=== PATIENT | male | born 1960 | race Caucasian/White ===

== ENCOUNTER → 2022-04-07 08:08 | Outpatient (CLI) | payer BC, SELFPAY ==
--- NOTE | 2022-04-07 | DI.MRI.S_ITS ---
PROCEDURE: MR ELBOW LT W CON INDICATIONS: LATERAL EPICONDYLITIS LEFT ELBOW TECHNIQUE: Noncontrast coronal proton density fast spin echo and T2 fast spin echo with fat saturation, axial and sagittal T1 spin echo and T2 fast spin echo with fat saturation through the elbow. COMPARISON: None. FINDINGS: Image quality: Excellent. Lateral structures: The lateral ulnar collateral ligament and radial collateral ligament both appear thickened with intrasubstance T2 hyperintense signal near its distal insertion.. The overlying common extensor tendon also appears thickened with intrasubstance T2 hyperintense signal near its lateral epicondylar insertion with adjacent soft tissue edema. Medial structures: The ulnar collateral ligament appears intact. The overlying common flexor tendon appears normal. The ulnar nerve appears normal in size and signal within the cubital tunnel. Anterior structures: The biceps and brachialis tendons both appear intact as they insert onto the proximal radius and ulna, respectively. No bicipitoradial bursal fluid. The median and radial neurovascular bundles appear normal; no focal muscle atrophy to suggest nerve impingement. Posterior structures: The conjoint triceps tendon from the long and lateral heads appears intact. The medial head of the triceps tendon also appears normal, with direct muscle insertion onto the olecranon. No olecranon bursal fluid. Bone and cartilage: No bone marrow contusions or fractures. No osteochondral injuries. IMPRESSION: 1. Finding is consistent with lateral epicondylitis with tendinosis and low-grade intrasubstance partial-thickness tear involving common extensor tendon origin at lateral low epicondyle. Sprain/low-grade partial-thickness tear involving distal portion of lateral collateral ligaments is also seen. 2. Rest of the elbow tendons and ligaments are intact. 3. No marrow edema. No fracture or dislocation. No intra-articular loose bodies. Dictated by: Chan Selby M.D. on 04/07/2022 at 11:32 Approved by: Chan Selby M.D. on 04/07/2022 at 11:34
== END ==
PROVIDERS: PCP Family Medicine; Referring Provider Orthopaedic Surgery; Visit Provider Orthopaedic Surgery
DX: M77.12 Lateral epicondylitis, left elbow (principal); S53.432A Radial collateral ligament sprain of left elbow, initial encounter; S53.442A Ulnar collateral ligament sprain of left elbow, initial encounter
CPT/HCPCS: 73221

== ENCOUNTER → 2022-05-26 15:46 | Outpatient (CLI) | payer BC, SELFPAY ==
[2022-05-26 17:44] LABS: Add Manual Diff / Slide Review NO; Basophils Absolute Auto 0 /uL (0-100); Basophils Percent Auto 0.4 % (0-2); Eosinophils Absolute Auto 100 /uL (0-450); Eosinophils Percent Auto 0.8 % (2-4); Hematocrit 44.1 % (41-53); Lymphocytes Absolute Auto 4100 /uL (1100-4500); Lymphocytes Percent Auto 51.5 % (25-40); Mean Corpuscular HGB Conc 34.1 % (30-36); Mean Corpuscular Hemoglobin 30.3 PG (26-34); Mean Corpuscular Volume 88.7 fL (80-100); Monocytes Absolute Auto 500 /uL (0-900); Monocytes Percent Auto 6.1 % (3-14); Neutrophils Absolute Auto 3300 /uL (1500-7000); Neutrophils Percent Auto 41.2 % (50-75); Platelet Count 240 X10^3/uL (150-400); Red Blood Cell Count 4.97 X10^6/uL (4.5-5.9)
[2022-05-26 18:02] LABS: Alanine Aminotransferase 20 IU/L (<50); Albumin Globulin Ratio 1.4 (1.0-2.8); Alkaline Phosphatase 53 U/L (38-126); Aspartate Aminotransferase 27 IU/L (17-59); BUN Creatinine Ratio 18.2 (6-22); Bilirubin Total 0.5 mg/dL (0.2-1.3); Blood Urea Nitrogen 16 mg/dL (9-20); Calcium 8.7 mg/dL (8.4-10.2); Carbon Dioxide 31 mmol/L (22-32); Chloride 102 mmol/L (98-107); Estimated Glomerular Filt Rate > 60 mL/min (>60); Globulin 2.8 g/dL (1.7-4.1); Glucose 84 mg/dL (70-100); HEMOLYSIS < 15 (0-50); Potassium 4.1 mmol/L (3.4-5.1); Sodium 140 mmol/L (137-145); Total Protein 6.8 g/dL (6.3-8.2)
[2022-05-26 18:34] LABS: TSH w/ Reflex to FT4 1.71 uIU/mL (0.47-4.68)
[2022-05-26 18:52] LABS: Vitamin B12 362 pg/mL (239-931)
== END ==
PROVIDERS: PCP Family Medicine; Referring Provider Family Medicine; Visit Provider Family Medicine
DX: I10 Essential (primary) hypertension (principal); I49.9 Cardiac arrhythmia, unspecified
CPT/HCPCS: 36415; 80053; 82607; 84443; 85025

== ENCOUNTER 2022-10-30 07:18 | Day surgery (SDC) | payer BC, SELFPAY ==
[2022-10-30 07:44] VITALS: BP 148/81; PULSE 58; RESP 20; TEMP 35.6; O2SAT 99; BMI 25.3
[2022-10-30] MEDS: LACTATED RINGERS 1,000 ML 120 ML IV (08:05)
--- NOTE | 2022-10-30 08:35 | P.HP_ITS ---
History of Present Illness History of Present Illness Date Patient Seen: 10/30/22 Time Patient Seen: 08:35 Chief complaint: Colonoscopy Narrative: Efrem is a 62 year old man who had a colonoscopy 3 years ago with polyps removed in [place]. No family history of colon cancer. PFSH Social History household members: spouse Meds Home Medications and Allergies Home Medications Medication Instructions Recorded Confirmed Type sodium sul 1.479 gram-potas ch See Rx Instructions PO PER PKG DIR 10/09/22 Rx 0.188 gram-magnes sul 0.225 gram #24 tabs tablet (Sutab) losartan See Rx Instructions .Route .COMPLEX 10/30/22 10/30/22 History Allergies Allergy/AdvReac Type Severity Reaction Status Date / Time No Known Drug Allergies Allergy Verified 10/30/22 07:58 Exam Vital Signs (past 8 hours): - 10/30/22 07:44 Temperature 96.1 F L Pulse Rate 58 L Respiratory Rate 20 Blood Pressure 148/81 H Pulse Oximetry 99 Oxygen Delivery Method Room Air Oxygen Delivery Method Room Air Const General: No acute distress Assessment & Plan Assessment and plan (1) Personal history of colonic polyps: Status: Acute Plan We reviewed the risks and benefits of colonoscopy for colon cancer screening and he would like to proceed.
--- NOTE | 2022-10-30 09:42 | PM.OP.COLON ---
Operative Date/Time/Diagnoses Date of procedure: 10/30/22 Time of procedure: 09:42 Pre-op diagnosis: Colon cancer screening Post-op diagnosis: same Procedure & Clinicians Study performed: Colonoscopy Surgeon: Addison Conner Procedure Notes Procedure in detail: Surgeon: Addison Conner MD Anesthesia: Claudine Li [employer]AR PHOTOVOLTAIC INSTALLER Procedure: The patient was brought to the endoscopy suite, placed in left lateral decubitus position. The patient was connected to monitoring devices. A time-out was performed. Sedation was administered. Once the patient was adequately sedated, a digital rectal exam was performed and was normal. The scope was then inserted and advanced to the cecum where the appendiceal orifice was identified and photographed. The scope was then slowly withdrawn over greater than 6 minutes. The mucosa was thoroughly inspected. Rare, scattered diverticula were seen in the sigmoid colon. The scope was retroflexed in the rectum. Some mild internal hemorrhoids were noted. No other abnormalities were noted. The scope was straightened and removed. The patient was awakened and brought to recovery. Scope withdrawal time: 8 minute Sedation time: 15 minutes EBL: 0 Findings: Normal colon Post-procedure Recommendations: Colonoscopy in 10 years Disposition: PACU
[2022-10-30 09:45] VITALS: BP 109/65; PULSE 61; RESP 13; TEMP 36.6; O2SAT 97
[2022-10-30 09:51] VITALS: BP 112/76; PULSE 58; RESP 15; TEMP 36.6; O2SAT 98
[2022-10-30 09:55] VITALS: BP 109/77; PULSE 59; RESP 18; TEMP 36.6; O2SAT 99
[2022-10-30 10:00] VITALS: BP 110/75; PULSE 58; RESP 18; TEMP 36.6; O2SAT 99
[2022-10-30 10:10] VITALS: BP 115/76; PULSE 57; RESP 16; TEMP 36.6; O2SAT 99
== END 2022-10-30 10:13 | disposition home or self-care (01) ==
PROVIDERS: PCP Family Medicine; Referring Provider Surgery; Visit Provider Surgery
PROC: 0DJD8ZZ Inspection of Lower Intestinal Tract, Via Natural or Artificial Opening Endoscopic (ICD-10-PCS; CPT 45378; principal; 2022-10-30 08:45)
DX: Z12.11 Encounter for screening for malignant neoplasm of colon (principal); K57.30 Diverticulosis of large intestine without perforation or abscess without bleeding; K64.8 Other hemorrhoids
CPT/HCPCS: 45378; J2704

== ENCOUNTER → 2023-01-02 07:48 | Outpatient (CLI) | payer BC, SELFPAY ==
--- NOTE | 2023-01-02 | DI.NM.S_ITS ---
PROCEDURE: NM EXERCISE TREADMILL NON NUC COMPARISON: None INDICATIONS: Paroxysmal atrial fibrillation FINDINGS: Rest ECG sinus rhythm, frequent PVCs. Kulwant protocol 11:39, maximum heart rate 146 bpm (91% peak predicted), maximum blood pressure 188/80, 12.8 METS, DOROTEO -30%. Exercise ECG sinus tachycardia no ST segment changes, decreased frequency of PVCs, no arrhythmias. Recovery ECG sinus rhythm, frequent PVCs. The patient did not complain of exercise-induced chest discomfort. IMPRESSION: Low risk study. No evidence of exercise-induced ischemia or arrhythmia. Frequent resting PVCs. Normal hemodynamic response to exercise. Very good exercise capacity. Dictated by: Pat Brady D.O. on 01/02/2023 at 17:38 Approved by: Pat Brady D.O. on 01/02/2023 at 17:41
== END ==
PROVIDERS: PCP Family Medicine; Referring Provider Internal Medicine Cardiovascular Disease; Visit Provider Internal Medicine Cardiovascular Disease
DX: I48.0 Paroxysmal atrial fibrillation (principal)
CPT/HCPCS: 93017

== ENCOUNTER → 2023-04-24 11:53 | Outpatient (CLI) | payer BC, SELFPAY ==
--- NOTE | 2023-04-24 | DI.RAD.S_ITS ---
PROCEDURE: XR HAND LT MIN 3V INDICATIONS: INJURY OF LEFT RING FINGER TECHNIQUE: 3 views of the hand(s) acquired. COMPARISON: None. FINDINGS: Bones: No acute fractures or dislocations. Carpal bones are normally aligned. No suspicious bony lesions. Remote fracture of the volar plate the 3rd middle phalanx. Soft tissues: No suspicious soft tissue calcifications. IMPRESSION: No acute, displaced fracture. Dictated by: Roddy Davidson M.D. on 04/24/2023 at 15:19 Approved by: Roddy Davidson M.D. on 04/24/2023 at 15:20
== END ==
PROVIDERS: PCP Family Medicine; Referring Provider Family Medicine; Visit Provider Family Medicine
DX: S69.92XA Unspecified injury of left wrist, hand and finger(s), initial encounter (principal); X58.XXXA Exposure to other specified factors, initial encounter
CPT/HCPCS: 73130

== ENCOUNTER 2024-10-09 15:42 | Emergency (ER) | payer BC, SELFPAY ==
[2024-10-09 15:44] VITALS: BP 164/86; PULSE 60; RESP 15; TEMP 36.6; O2SAT 100; BMI 25.3
--- NOTE | 2024-10-09 16:00 | DI.RAD.S_ITS ---
PROCEDURE: XR HIP W PEL IF DONE RT 2V INDICATIONS: Rt. hip pain able to bare minimal wt. TECHNIQUE: AP pelvis with lateral view(s) of the right hip(s). COMPARISON: None. FINDINGS: Bones: No fractures or dislocations. Pelvic ring appears intact. No suspicious bony lesions. Bilateral hip arthroplasty hardware is seen, without findings of failure or loosening. Age-appropriate lower lumbar spine degenerative changes are noted. Soft tissues: The visualized bowel gas pattern is normal. No suspicious soft tissue calcifications. IMPRESSION: Unremarkable postoperative study, without a cause of the patient's presenting history identified. Negative for fracture or dislocation. Dictated by: Tip Hester M.D. on 10/09/2024 at 15:30 Approved by: Tip Hester M.D. on 10/09/2024 at 15:31
--- NOTE | 2024-10-09 16:56 | ED.EXTPRO ---
HPI - Extremity Problem General Chief complaint: Extremity Problem,Nontraumatic Stated complaint: rt hip pain, t-1 month, artificial hip, worse toda Time Seen by Provider: 10/09/24 16:51 Source: patient Mode of arrival: Ambulatory History of Present Illness HPI Narrative: Mr. Burr is a pleasant 64 year old male with a past medical history of AFib status post ablation, bilateral hip surgery with hardware, hypertension who presents to the emergency department for right hip pain intermittently x1 month. Patient states about a month ago his right hip started hurting him, he saw his surgeon who did not x-ray and said it was normal, his pain went away however few days ago the pain came back. States that he was on his knees, working in his garden and then when he woke up this morning he would severe pain of the right hip. Describes it on the anterior and lateral aspect of the hip, worse with walking and flexing the leg, pain is improved with externally rotating the hip. He took an [place] and a dose of his 's Celebrex without relief. Related Data Home Medications Medication Instructions Recorded Confirmed losartan See Rx Instructions .Route .COMPLEX 10/30/22 10/30/22 Previous Rx's Medication Instructions Recorded lidocaine 5 % topical patch 1 patch topical DAILY #30 ea 10/09/24 (Lidoderm) methocarbamol 500 mg tablet 500 mg PO BEDTIME #10 tabs 10/09/24 naproxen 500 mg tablet 500 mg PO BID PRN pain #20 tabs 10/09/24 Allergies Allergy/AdvReac Type Severity Reaction Status Date / Time No Known Drug Allergies Allergy Verified 10/30/22 07:58 Review of Systems Review of Systems ROS Unobtainable: All systems reviewed & are unremarkable except as noted in HPI and below Patient History Social History household members: spouse Smoking Status: Never smoker Smoking Status: Never smoker alcohol intake frequency: 0-2 drinks per day Exam Narrative Exam Narrative: GENERAL: 64 year old patient appears stated age. Well-developed patient, very tall, in no acute distress. HEAD: Atraumatic. Normocephalic. NECK: Trachea midline. Cervical ROM intact. CARDIOVASCULAR: Regular rate and rhythm. RESPIRATORY: ?Nonlabored respirations. ?Speaking in clear, full sentences. ? GASTROINTESTINAL: Abdomen soft, non-tender, nondistended. No palpable hernias. EXTREMITIES: Entire right hip exposed. No deformities or bruising or rashes. Patient has tenderness to palpation of the lateral aspect of the right hip overlying the region of the greater trochanter and also the anterior right hip region. His pain is relieved with external rotation of the hip and is exacerbated by internal flexion of the hip. He is able to ambulate but with limp. Strong DP and PT pulses bilaterally. BACK: Nontender NEURO: AOx3. ?Clear speech. Sensation intact to light touch throughout the lower extremities. SKIN: No rash or erythema of visible areas Initial Vital Signs Initial Vital Signs: Vital Signs Temperature 97.8 F 10/09/24 15:44 Pulse Rate 60 10/09/24 15:44 Respiratory Rate 15 10/09/24 15:44 Blood Pressure 164/86 H 10/09/24 15:44 Pulse Oximetry 100 10/09/24 15:44 Oxygen Delivery Method Room Air 10/09/24 15:44 Course Orders Ordered: ED Orders 10/09/24 16:00 XR hip w pel if done RT 2V Stat Discontinued Medications Hydrocodone Bitart/Acetaminophen (Hydrocodone/Acet 5/325 Tablet) 1 tab PO NOW ONE Stop: 10/09/24 17:28 Last Admin: 10/09/24 17:41 Dose: 1 tab Documented By: PATRICK Ketorolac Tromethamine (Ketorolac 30 Mg/Ml Vial) 30 mg IM NOW ONE Stop: 10/09/24 17:28 Last Admin: 10/09/24 17:42 Dose: 30 mg Documented By: PATRICK Lidocaine (Lidocaine 5% Patch) 1 each TOP NOW ONE Stop: 10/09/24 17:28 Last Admin: 10/09/24 17:42 Dose: 1 each Documented By: PATRICK Vital Signs Vital signs: Vital Signs - 8 hr 10/09/24 15:44 10/09/24 18:22 Temperature 97.8 F Pulse Rate 60 60 Respiratory Rate 15 18 Blood Pressure 164/86 H 141/87 H Pulse Oximetry 100 98 Oxygen Delivery Method Room Air Room Air MDM - Extremity (Nontraumatic) Medical Records Attestation: I reviewed the patient's medical records. Medical records narrative: 10/30/2022 personal history of colonic polyps Imaging Data Hip and Pelvis X-Ray: Radiologist's Impression: PROCEDURE: XR HIP W PEL IF DONE RT 2V INDICATIONS: Rt. hip pain able to bare minimal wt. TECHNIQUE: AP pelvis with lateral view(s) of the right hip(s). COMPARISON: None. FINDINGS: Bones: No fractures or dislocations. Pelvic ring appears intact. No suspicious bony lesions. Bilateral hip arthroplasty hardware is seen, without findings of failure or loosening. Age-appropriate lower lumbar spine degenerative changes are noted. Soft tissues: The visualized bowel gas pattern is normal. No suspicious soft tissue calcifications. IMPRESSION: Unremarkable postoperative study, without a cause of the patient's presenting history identified. Negative for fracture or dislocation. [facility] Narrative Medical decision making narrative: 64 year old male with a past medical history of AFib status post ablation, bilateral hip surgery with hardware, hypertension who presents to the emergency department for right hip pain intermittently x1 month. Differential diagnosis includes but is not limited to hip fracture, sprain, strain, hardware complication, radiculopathy, meralgia paresthetica, etc. On exam the patient is in no acute distress, nontoxic appearing, vital signs appropriate. Right lower extremity is neurovascularly intact. He has nontraumatic right hip pain with a history of right hip hardware, recently gardening on his knees moving around for prolonged period of time. Pain in the right hip is quite severe and not responsive to home pain medications. X-ray hip and pelvis obtained reveals unremarkable postoperative steady, without a cause of the patient's presenting history identified. Negative for fracture or dislocation. He was treated with a dose of hydrocodone-acetaminophen and Toradol in the emergency department, I prescribed naproxen and Lidoderm for home and recommended acetaminophen in addition to Robaxin if needed. Discussed risks of muscle relaxers. Recommended supportive care with rest, ice, heat, compression, follow up with his surgeon promptly for further evaluation. We discussed strict ED return precautions. Patient verbalized understanding of all information is agreeable with the plan. He is stable for discharge home. Discharge Plan Departure Patient Disposition: Home Clinical Impression: Strain of right hip Qualifiers: Encounter type: initial encounter Qualified Code(s): S76.011A - Strain of muscle, fascia and tendon of right hip, initial encounter Instructions: DI for Hip Pain Activity Restrictions/Additional Instructions: Dear Mr. Burr, Thank you for coming to the emergency department today. You were evaluated for right hip pain. X-ray of her hip reveals no bone or hardware problems. At this time I am concerned for a soft tissue or muscle injury. It is very important to follow up with your surgeon for further evaluation. I have prescribed you an anti-inflammatory pain medication in addition to topical numbing medication, and a muscle relaxer. Take full-strength acetaminophen/Tylenol (a 1000 mg) every 8 hours as well. Please be aware that muscle relaxers can make you drowsy but you can try taking this at night to help with any spasms. Avoid drinking alcohol, taking narcotics, operating heavy machinery or driving a car while taking muscle relaxers. Please use RICE therapy for your pain in addition to naproxen/acetaminophen. Rest the painful area. Ice the area of pain/swelling for at least 15 minutes, 4x a day. Compress the area of swelling using a brace, wrap, or splint if applied. Elevate the painful or swollen extremity by supporting it above the level of the heart with pillows when sitting or laying. Please follow up with your primary care doctor within the next 2-3 days for ER follow-up. (If you do not have a PCP you can call [phone]. ?to schedule an appointment with an [facility] Primary Care Provider) IF YOU DEVELOP ANY NEW OR WORSENING SYMPTOMS, RETURN TO THE ER! Please read the attached instructions, they highlight more specific treatments and interventions for you at home. Thank you for letting me participate in your care, Mary Birch PA-C Prescriptions: New naproxen 500 mg tablet 500 mg PO BID PRN (Reason: pain) Qty: 20 0RF lidocaine [Lidoderm] 5 % adhesive patch,medicated 1 patch topical DAILY Qty: 30 0RF Rx Instructions: leave on most painful area for up to 12 hrs methocarbamol 500 mg tablet 500 mg PO BEDTIME Qty: 10 0RF No Action losartan 100 mg tablet See Rx Instructions .ROUTE .COMPLEX Rx Instructions: 100 mg orally ;100 100 mL orally Referrals: Sai Tapia MD [Primary Care Provider] - Stand Alone Forms: Patient Portal/API/Survey
[2024-10-09] MEDS: HYDROCODONE/ACET 5/325 TABLET 1 TAB PO (17:41)
[2024-10-09] MEDS: KETOROLAC 30 MG/ML VIAL IM (17:42)
[2024-10-09] MEDS: LIDOCAINE 5% PATCH 1 EACH TOP (17:42)
[2024-10-09 18:22] VITALS: BP 141/87; PULSE 60; RESP 18; O2SAT 98
--- NOTE | 2024-10-14 01:11 | ED_ITS ---
HPI - Extremity Problem General Chief complaint: Extremity Problem,Nontraumatic Stated complaint: rt hip pain, t-1 month, artificial hip, worse toda Time Seen by Provider: 10/09/24 16:51 Source: patient Mode of arrival: Ambulatory History of Present Illness HPI Narrative: 64-year-old gentleman with a history of AFib, post ablation not currently anticoagulated, he has had bilateral hip replacements presents complaining of continued right hip pain. Was seen in the emergency department on October 10 with significant pain, x-rays were unremarkable, felt to be a hip strain. He followed up with his primary care physician was given muscle relaxers which is minimally helpful. He notes that there are days when the pain isn't quite as severe and then escalates. Tonight he has been having so much pain that he was unable to stand up, diaphoretic and vomiting secondary to the pain. He was given fentanyl ketamine and Zofran EN route by medics. Continues to have severe right hip pain worse in the groin worse with internal rotation, no knee pain, no obvious fevers, he does not have pain into the right lower quadrant of his abdomen or tenderness with manipulation of the pelvic ring. He does not have back pain. Related Data Home Medications Medication Instructions Recorded Confirmed losartan See Rx Instructions .Route .COMPLEX 10/30/22 10/30/22 Previous Rx's Medication Instructions Recorded lidocaine 5 % topical patch 1 patch topical DAILY #30 ea 10/09/24 (Lidoderm) methocarbamol 500 mg tablet 500 mg PO BEDTIME #10 tabs 10/09/24 naproxen 500 mg tablet 500 mg PO BID PRN pain #20 tabs 10/09/24 Allergies Allergy/AdvReac Type Severity Reaction Status Date / Time No Known Drug Allergies Allergy Verified 10/30/22 07:58 Review of Systems Review of Systems Narrative: Pertinent positive and negative findings as per HPI Patient History Medical History (Updated 10/14/24 @ 01:13 by Diamond Burgos MD) Hypertension History of atrial fibrillation Surgical History (Updated 10/14/24 @ 01:13 by Diamond Burgos MD) History of bilateral hip replacements Social History household members: spouse Smoking Status: Never smoker alcohol intake frequency: 0-2 drinks per day Exam Initial Vital Signs Initial Vital Signs: Vital Signs Temperature 97.8 F 10/09/24 15:44 Pulse Rate 60 10/09/24 15:44 Respiratory Rate 15 10/09/24 15:44 Blood Pressure 164/86 H 10/09/24 15:44 Pulse Oximetry 100 10/09/24 15:44 Oxygen Delivery Method Room Air 10/09/24 15:44 General: Alert, pale, diaphoretic secondary to pain. Respiratory: Able to speak in full sentences, no obvious respiratory distress Abdomen: Soft. No tenderness particularly no tenderness in the right lower quadrant or right flank Spine: No midline tenderness along the lower thoracic or lumbar spine. No tenderness with manipulation of the pelvic ring Neurologic: Grossly intact no obvious asymmetries or abnormalities Psych: appropriate insight and affect, cooperative Extremity: Right hip has tenderness above the anterior pubic ramus radiating into the right groin. Pain is relieved with external rotation of the hip exacerbated by internal rotation of the hip. Bad enough that he is unable to to stand Course Orders Ordered: ED Orders 10/14/24 01:09 CT pelvis w con Stat Blood Culture Stat Complete Blood Count AUTO DIFF Stat Comprehensive Metabolic Panel Stat 10/14/24 01:11 CRP [C-Reactive Protein Quant] Stat Erythrocyte Sedimentation Rate Stat Hydromorphone HCl (Hydromorphone 0.5 Mg Inj) 0.5 mg IV Q15MIN PRN PRN Reason: Pain, Discontinued Medications Hydrocodone Bitart/Acetaminophen (Hydrocodone/Acet 5/325 Tablet) 1 tab PO NOW ONE Stop: 10/09/24 17:28 Last Admin: 10/09/24 17:41 Dose: 1 tab Documented By: PATRICK Ketorolac Tromethamine (Ketorolac 30 Mg/Ml Vial) 30 mg IM NOW ONE Stop: 10/09/24 17:28 Last Admin: 10/09/24 17:42 Dose: 30 mg Documented By: PATRICK Lidocaine (Lidocaine 5% Patch) 1 each TOP NOW ONE Stop: 10/09/24 17:28 Last Admin: 10/09/24 17:42 Dose: 1 each Documented By: PATRICK Discharge Plan Departure Patient Disposition: Home Clinical Impression: Strain of right hip Qualifiers: Encounter type: initial encounter Qualified Code(s): S76.011A - Strain of muscle, fascia and tendon of right hip, initial encounter Instructions: DI for Hip Pain Activity Restrictions/Additional Instructions: Dear Mr. Burr, Thank you for coming to the emergency department today. You were evaluated for right hip pain. X-ray of her hip reveals no bone or hardware problems. At this time I am concerned for a soft tissue or muscle injury. It is very important to follow up with your surgeon for further evaluation. I have prescribed you an anti-inflammatory pain medication in addition to topical numbing medication, and a muscle relaxer. Take full-strength acetaminophen/Tylenol (a 1000 mg) every 8 hours as well. Please be aware that muscle relaxers can make you drowsy but you can try taking this at night to help with any spasms. Avoid drinking alcohol, taking narcotics, operating heavy machinery or driving a car while taking muscle relaxers. Please use RICE therapy for your pain in addition to naproxen/acetaminophen. Rest the painful area. Ice the area of pain/swelling for at least 15 minutes, 4x a day. Compress the area of swelling using a brace, wrap, or splint if applied. Elevate the painful or swollen extremity by supporting it above the level of the heart with pillows when sitting or laying. Please follow up with your primary care doctor within the next 2-3 days for ER follow-up. (If you do not have a PCP you can call [phone]. ?to schedule an appointment with an [facility] Primary Care Provider) IF YOU DEVELOP ANY NEW OR WORSENING SYMPTOMS, RETURN TO THE ER! Please read the attached instructions, they highlight more specific treatments and interventions for you at home. Thank you for letting me participate in your care, Mary Birch PA-C Prescriptions: New naproxen 500 mg tablet 500 mg PO BID PRN (Reason: pain) Qty: 20 0RF lidocaine [Lidoderm] 5 % adhesive patch,medicated 1 patch topical DAILY Qty: 30 0RF Rx Instructions: leave on most painful area for up to 12 hrs methocarbamol 500 mg tablet 500 mg PO BEDTIME Qty: 10 0RF No Action losartan 100 mg tablet See Rx Instructions .ROUTE .COMPLEX Rx Instructions: 100 mg orally ;100 100 mL orally Referrals: Sai Tapia MD [Primary Care Provider] - Stand Alone Forms: Patient Portal/API/Survey
== END 2024-10-09 18:17 | disposition home or self-care (01) ==
PROVIDERS: Emergency Provider Physician Assistant; PCP Family Medicine
DX: S76.011A Strain of muscle, fascia and tendon of right hip, initial encounter (principal); Z96.643 Presence of artificial hip joint, bilateral; X50.1XXA Overexertion from prolonged static or awkward postures, initial encounter; Y93.H2 Activity, gardening and landscaping
CPT/HCPCS: 73502; 96372; 99283; J1885

== ENCOUNTER 2024-10-14 01:01 | Emergency (ER) | payer BC, SELFPAY ==
[2024-10-14] VITALS (10 sets, daily range): BP systolic 131–199; BP diastolic 62–90; PULSE 56–72; RESP 16; TEMP 37.1; O2SAT 93–100; BMI 25.4
--- NOTE | 2024-10-14 01:01 | ED.GENADULT ---
HPI - General Adult General Chief complaint: Extremity Problem,Nontraumatic Stated complaint: Right hip pain Time Seen by Provider: 10/14/24 01:02 Related Data Home Medications Medication Instructions Recorded Confirmed losartan See Rx Instructions .Route .COMPLEX 10/30/22 10/30/22 Previous Rx's Medication Instructions Recorded lidocaine 5 % topical patch 1 patch topical DAILY #30 ea 10/09/24 (Lidoderm) methocarbamol 500 mg tablet 500 mg PO BEDTIME #10 tabs 10/09/24 naproxen 500 mg tablet 500 mg PO BID PRN pain #20 tabs 10/09/24 Allergies Allergy/AdvReac Type Severity Reaction Status Date / Time No Known Drug Allergies Allergy Verified 10/30/22 07:58 Patient History Medical History (Updated 10/14/24 @ 01:13 by Diamond Burgos MD) Hypertension History of atrial fibrillation Surgical History (Updated 10/14/24 @ 01:13 by Diamond Burgos MD) History of bilateral hip replacements Social History household members: spouse Smoking Status: Never smoker Exam Initial Vital Signs Initial Vital Signs: Vital Signs Temperature 98.7 F 10/14/24 01:10 Pulse Rate 60 10/14/24 01:10 Respiratory Rate 16 10/14/24 01:10 Blood Pressure 177/87 H 10/14/24 01:10 Pulse Oximetry 100 10/14/24 01:10 Oxygen Delivery Method Room Air 10/14/24 01:10 Course Vital Signs Vital signs: Vital Signs - 8 hr 10/14/24 01:10 Temperature 98.7 F Pulse Rate 60 Respiratory Rate 16 Blood Pressure 177/87 H Pulse Oximetry 100 Oxygen Delivery Method Room Air Discharge Plan Departure Prescriptions: No Action losartan 100 mg tablet See Rx Instructions .ROUTE .COMPLEX Rx Instructions: 100 mg orally ;100 100 mL orally naproxen 500 mg tablet 500 mg PO BID PRN (Reason: pain) Qty: 20 0RF lidocaine [Lidoderm] 5 % adhesive patch,medicated 1 patch topical DAILY Qty: 30 0RF Rx Instructions: leave on most painful area for up to 12 hrs methocarbamol 500 mg tablet 500 mg PO BEDTIME Qty: 10 0RF Referrals: Sai Tapia MD [Primary Care Provider] -
--- NOTE | 2024-10-14 01:21 | ED_ITS ---
HPI - Extremity Problem General Chief complaint: Extremity Problem,Nontraumatic Stated complaint: Right hip pain Time Seen by Provider: 10/14/24 01:02 Source: patient and EMS Mode of arrival: EMS History of Present Illness HPI Narrative: 64-year-old gentleman with a history of AFib, post ablation not currently anticoagulated, he has had bilateral hip replacements presents complaining of continued right hip pain. Was seen in the emergency department on October 10 with significant pain, x-rays were unremarkable, felt to be a hip strain. He followed up with his primary care physician was given muscle relaxers which is minimally helpful. He notes that there are days when the pain isn't quite as severe and then escalates. Tonight he has been having so much pain that he was unable to stand up, diaphoretic and vomiting secondary to the pain. He was given fentanyl ketamine and Zofran EN route by medics. Continues to have severe right hip pain worse in the groin worse with internal rotation, no knee pain, no obvious fevers, he does not have pain into the right lower quadrant of his abdomen or tenderness with manipulation of the pelvic ring. He does not have back pain. Related Data Home Medications Medication Instructions Recorded Confirmed losartan See Rx Instructions .Route .COMPLEX 10/30/22 10/30/22 Previous Rx's Medication Instructions Recorded lidocaine 5 % topical patch 1 patch topical DAILY #30 ea 10/09/24 (Lidoderm) methocarbamol 500 mg tablet 500 mg PO BEDTIME #10 tabs 10/09/24 naproxen 500 mg tablet 500 mg PO BID PRN pain #20 tabs 10/09/24 Allergies Allergy/AdvReac Type Severity Reaction Status Date / Time No Known Drug Allergies Allergy Verified 10/30/22 07:58 Review of Systems Review of Systems Narrative: Pertinent positive and negative findings as per HPI Patient History Medical History Hypertension History of atrial fibrillation Surgical History History of bilateral hip replacements Social History household members: spouse Smoking Status: Never smoker Smoking Status: Never smoker alcohol intake frequency: 0-2 drinks per day Exam Initial Vital Signs Initial Vital Signs: Vital Signs Temperature 98.7 F 04/18/25 01:10 Pulse Rate 60 10/14/24 01:10 Respiratory Rate 16 10/14/24 01:10 Blood Pressure 177/87 H 10/14/24 01:10 Pulse Oximetry 100 10/14/24 01:10 Oxygen Delivery Method Room Air 10/14/24 01:10 General: Alert in significant distress, enough pain that he is pale and diaphoretic Respiratory: Able to speak in full sentences, no obvious respiratory distress Abdomen: Soft, particularly right lower quadrant free of any tenderness. No rebound no guarding no flank pain Skin: No obvious rashes, warm and dry Neurologic: Grossly intact no obvious asymmetries or abnormalities Psych: appropriate insight and affect, cooperative Extremity: Tenderness along the superior pubic ramus radiating into the groin without obvious warmth or redness. Pain is relieved with external rotation of the hips significantly exacerbated with internal rotation. Course Orders Ordered: ED Orders 10/14/24 01:27 CRP [C-Reactive Protein Quant] Stat Erythrocyte Sedimentation Rate Stat 10/14/24 01:28 CT pelvis w con Stat Blood Culture Stat Complete Blood Count AUTO DIFF Stat Comprehensive Metabolic Panel Stat Hydromorphone HCl (Hydromorphone 0.5 Mg Inj) 0.5 mg IV Q15MIN PRN PRN Reason: Pain, Vital Signs Vital signs: Vital Signs - 8 hr 10/14/24 01:10 Temperature 98.7 F Pulse Rate 60 Respiratory Rate 16 Blood Pressure 177/87 H Pulse Oximetry 100 Oxygen Delivery Method Room Air MDM - Extremity (Nontraumatic) Imaging Data Pelvic and Hip CT: Radiologist's Impression: PROCEDURE: XR HIP W PEL IF DONE RT 2V INDICATIONS: Rt. hip pain able to bare minimal wt. TECHNIQUE: AP pelvis with lateral view(s) of the right hip(s). COMPARISON: None. FINDINGS: Bones: No fractures or dislocations. Pelvic ring appears intact. No suspicious bony lesions. Bilateral hip arthroplasty hardware is seen, without findings of failure or loosening. Age-appropriate lower lumbar spine degenerative changes are noted. Soft tissues: The visualized bowel gas pattern is normal. No suspicious soft tissue calcifications. IMPRESSION: Unremarkable postoperative study, without a cause of the patient's presenting history identified. Negative for fracture or dislocation. Dictated by: Tip Hester M.D. on 10/09/2024 at 15:30 [facility] Narrative Medical decision making narrative: CC: Persistent right hip pain Complicating co-morbidities: Hypertension, bilateral hip replacement, pain waxing and waning with prior ER visit and primary care visit all within the next week and a half Data collected from: patient Medical records reviewed: Previous ER notes and imaging studies reviewed Differential considered: Septic joint, septic bursitis, periprosthetic fracture, pelvic fracture, Exam documented above, pertinent findings include: Pain is significant enough that he is pale and diaphoretic. No tenderness into the right lower quadrant and right flank. Pain is somewhat relieved with external rotation of the hip significantly exacerbated with internal rotation. Skin around the hip joint itself is not particularly erythematous or warm to the touch Lab Test results independently reviewed as above. Pertinent findings: CBC shows mild leukocytosis without left shift, no anemia Chemistries are notable for normal creatinine, slightly low potassium at 3.2, normal liver studies Sed rate and C-reactive protein are unremarkable Treatments: Patient was given fentanyl, ketamine and Zofran prior to arrival. Additional 0.5 mg of hydromorphone Re-evaluations: Patient is still having pain with hip flexion most comfortable with his hip slightly flexed and resting. No knee abnormalities and no low back abnormalities Discussion: 64-year-old gentleman with intermittent episodes of debilitating right anterior hip pain. There is no evidence of acute trauma, hematoma, septic joint loosening prosthesis or alternate explanation that would require hospitalization, immediate surgery or additional imaging. He has already seen h is outpatient provider and has prescriptions for nonsteroidals, narcotics and muscle relaxers. Referrals for MRI, orthopedic surgery consult and physical therapy consult have all been initiated. Patient has crutches at home. He is wondering how he will be able to be mobile at home. Offered the possibility of walker for increased stability but he felt his crutches would be adequate. He is safe for discharge Discharge Plan Departure Patient Disposition: Home Clinical Impression: Acute pain of right hip Activity Restrictions/Additional Instructions: Thank you for coming in tonight Sometimes in the emergency department the best I am able to do as tell you all of the things that you do not have. For example you do not have a broken hip or pelvis, you do not have a septic joint, there was no infection in your pelvis, you do not have acute knee problems or low back problems. I believe that the outpatient plan that Dr. Tapia has already begun referrals for including narcotics, nonsteroidals and muscle relaxants, outpatient MRI, physical therapy referral and orthopedic referral are all appropriate. If you develop a fever, numbness or new findings please do return to the emergency department I wish you the best in coming to a definitive answer and managing your pain. Prescriptions: No Action losartan 100 mg tablet See Rx Instructions .ROUTE .COMPLEX Rx Instructions: 100 mg orally ;100 100 mL orally naproxen 500 mg tablet 500 mg PO BID PRN (Reason: pain) Qty: 20 0RF lidocaine [Lidoderm] 5 % adhesive patch,medicated 1 patch topical DAILY Qty: 30 0RF Rx Instructions: leave on most painful area for up to 12 hrs methocarbamol 500 mg tablet 500 mg PO BEDTIME Qty: 10 0RF Referrals: Sai Tapia MD [Primary Care Provider] - Stand Alone Forms: Patient Portal/API/Survey
--- NOTE | 2024-10-14 01:28 | DI.CT.S_ITS ---
PROCEDURE: CT PELVIS W CON INDICATIONS: right hip pain ? septic joint TECHNIQUE: After the administration of intravenous contrast, 5 mm thick sections acquired from the iliac crests to the symphysis. 5 mm coronal and sagittal reformats were acquired. For radiation dose reduction, the following was used: automated exposure control, adjustment of mA and/or kV according to patient size. COMPARISON: None. FINDINGS: Image quality: Diagnostic. PELVIS: Peritoneum and Bowel: Bowel loops demonstrate normal wall thickness and caliber. No free fluid or air. Pelvic Organs: No pelvic mass. Bladder: Normal wall thickness, accounting for underdistension. No perivesicular fat stranding. Pelvic Nodes: No enlarged lymph nodes. Miscellaneous: There is enlargement of the right iliopsoas muscle, without associated rim enhancing collection. The collection measures approximately 10.2 x 5.5 x 7.6 cm (series 2, image 40 and series 3, image 60). There is fat stranding extraperitoneal space overlying this region. Bones: Bilateral hip arthroplasties, without complication. Degenerative disc disease of the lumbar spine. IMPRESSION: Enlargement and heterogeneous enhancement of the right ileo psoas muscle, without associated rim enhancing collection. This measures approximately 10.2 x 5.5 x 7.6 cm and probably represents a hematoma, less likely malignancy. Correlate with recent trauma. Recommend repeat CT in 6-12 weeks to ensure resolution. Agree with preliminary report. Dictated by: Roddy Davidson M.D. on 10/14/2024 at 8:22 Approved by: Roddy Davidson M.D. on 10/14/2024 at 8:27
[2024-10-14 01:58] LABS: Add Manual Diff / Slide Review NO; Basophils Absolute Auto 300 /uL (0-100); Basophils Percent Auto 2.3 % (0-2); Eosinophils Absolute Auto 100 /uL (0-450); Eosinophils Percent Auto 0.7 % (2-4); Hematocrit 40.2 % (41-53); Hemoglobin 13.7 g/dL (13.5-17.5); Lymphocytes Absolute Auto 3700 /uL (1100-4500); Lymphocytes Percent Auto 31.4 % (25-40); Mean Corpuscular HGB Conc 34.1 % (30-36); Mean Corpuscular Hemoglobin 29.8 PG (26-34); Mean Corpuscular Volume 87.4 fL (80-100); Monocytes Absolute Auto 700 /uL (0-900); Monocytes Percent Auto 5.6 % (3-14); Neutrophils Absolute Auto 7000 /uL (1500-7000); Platelet Count 249 X10^3/uL (150-400); Red Cell Distribution Width 14.4 % (11.6-14.8); White Blood Cell Count 11.6 X10^3/uL (4.5-11.0)
--- NOTE | 2024-10-14 02:07 | PC.NURSE ---
Patient sleeping at this time
[2024-10-14 02:34] LABS: Erythrocyte Sedimentation Rate 8 MM/HR (0-15)
[2024-10-14 02:57] LABS: Alanine Aminotransferase 26 IU/L (<50); Albumin Globulin Ratio 1.3 (1.0-2.8); Alkaline Phosphatase 56 U/L (38-126); Aspartate Aminotransferase 30 IU/L (17-59); BUN Creatinine Ratio 27.1 (6-22); Bilirubin Total 0.9 mg/dL (0.2-1.3); Blood Urea Nitrogen 26 mg/dL (9-20); Calcium 8.4 mg/dL (8.4-10.2); Carbon Dioxide 25 mmol/L (22-32); Chloride 102 mmol/L (98-107); Estimated Glomerular Filt Rate > 60 mL/min (>60); Glucose 132 mg/dL (80-110); HEMOLYSIS < 15 (0-50); Potassium 3.2 mmol/L (3.4-5.1); Sodium 136 mmol/L (137-145)
[2024-10-14 03:12] LABS: C-Reactive Protein Quant < 0.5 mg/dL (<1.0)
[2024-10-14] MEDS: HYDROMORPHONE 0.5 MG INJ IV (03:43)
== END 2024-10-14 04:02 | disposition home or self-care (01) ==
PROVIDERS: Emergency Provider Emergency Medicine; PCP Family Medicine
DX: S76.011A Strain of muscle, fascia and tendon of right hip, initial encounter (principal); M25.551 Pain in right hip; X58.XXXA Exposure to other specified factors, initial encounter; Z96.643 Presence of artificial hip joint, bilateral; M25.451 Effusion, right hip
CPT/HCPCS: 36415; 72193; 73721; 80053; 85025; 85651; 86140; 87040; 96374; 99284; J1171; Q9967

== ENCOUNTER → 2024-10-14 19:15 | Outpatient (CLI) | payer BC, SELFPAY ==
--- NOTE | 2024-10-14 19:17 | DI.MRI.S_ITS ---
PROCEDURE: MR HIP RT WO CON INDICATIONS: HIP PX TECHNIQUE: Noncontrast coronal T1 spin echo and STIR through the bony pelvis. Coronal and axial T2 fast spin echo with fat saturation, sagittal T1 spin echo, and oblique axial T2 fast spin echo with fat saturation through the hip. COMPARISON: [facility], CT, CT PELVIS W CON, 10/14/2024, 1:41. [facility], CR, XR HIP W PEL IF DONE RT 2V, 10/09/2024, 16:04. FINDINGS: Image quality: Excellent. Susceptibility artifact secondary to bilateral resurfacing hip arthroplasties limits evaluation. Bones: The bone marrow signal is normal. There is no evidence of fracture, osteonecrosis, or acetabular dysplasia. Bilateral resurfacing hip arthroplasties are present. There are no osseous erosions. Joints: The sacroiliac joints are preserved, without reactive marrow changes. There is a small right hip joint effusion, in communication with the right iliopsoas bursa. There is no significant left hip joint effusion. Acetabular cartilage: Not applicable Labrum: Not applicable Bursae: There is a moderate amount of complex fluid in the right iliopsoas bursa with associated edema of the distal right iliopsoas musculature. Muscles: Intramuscular edema is present within the right iliopsoas muscle (3/26). Perifascial fluid is present around the right hip musculature as well as the right greater trochanteric bursa (4/29). Tendons: The tendons about the pelvis appear normal in signal and size. Nerves: The sciatic nerves are normal in signal and caliber. Vessels: The dominant flow voids are preserved. Other: No other acute abnormality. IMPRESSION: Complex right iliopsoas bursal fluid, which may represent a hematoma or decompression of infection versus particle disease from the right hip joint. An ultrasound-guided aspiration versus biopsy would be recommended for further evaluation. Dictated by: Rashad Heath M.D. on 10/17/2024 at 13:43 Approved by: Rashad Heath M.D. on 10/17/2024 at 14:18
== END ==
LOC: MRI 19:16
PROVIDERS: PCP Family Medicine; Referring Provider Family Medicine; Visit Provider Family Medicine
DX: M25.551 Pain in right hip (principal); M25.451 Effusion, right hip
CPT/HCPCS: 73721

== ENCOUNTER → 2024-10-19 15:04 | Outpatient (CLI) | payer BC, SELFPAY ==
--- NOTE | 2024-10-19 | PATH_ITS ---
Note [facility] Accession Number: [id number] TESTS RESULT FLAG UNITS REF RANGE LAB Clinician Provided Cytology Information No. of containers..01 Other (Miscellaneous) Source: RIGHT HIP JOINT FLUID DIAGNOSIS: RIGHT HIP JOINT FLUID, FINE NEEDLE ASPIRATION. NEGATIVE FOR MALIGNANT CELLS. SCANT CELLULARITY WITH RARE LINING CELLS AND FEW BLOOD ELEMENTS (BLOOD CONTAMINATION-FAVORED, OR HEMARTHROSIS). CLINICAL AND RADIOLOGIC CORRELATION IS RECOMMENDED. THIS INTERPRETATION INCLUDES EVALUATION OF A CELL BLOCK. Pathologist ICD10: M25.551 Signed out by: Caitlyn Allen MD, Pathologist NPI- [id number] Performed by: Rell Escalante, Die Cast Die Maker ([facility]) Gross description: 0.5 CC, RED, CLOUDY RECEIVED: FRESH IN BLUE CAP CONTAINER.VO /VDU 10/20/2024 1050 Local FLAG LEGEND: L-Low Normal,H-High Normal,LL-Alert Low,HH-Alert High <-Panic Low,>-Panic High,A-Abnormal,AA-Critical Abnormal Performed at: 01 =Z [facility] [address], [place] [address] Ronaldo Bhatt MD, Performed at: 01 [facility] [address], [place], [place] [id number] MD Ronaldo Bhatt MD Phone: [phone]
--- NOTE | 2024-10-19 15:05 | DI.US.S_ITS ---
PROCEDURE: US BIOPSY SOFT TISS PEL HIP RT and/or right hip arthrocentesis INDICATIONS: Rt hip pain TECHNIQUE: The details of the procedure were discussed with the patient and written informed consent was obtained. Specifically, the risks, benefits, and alternatives of the procedure were discussed, including, but not limited to, bleeding, infection, pain, damage to adjacent structures, and nondiagnostic specimen. The patient was able to ask questions, indicated their understanding, and agreed to proceed. A final time out was performed prior to commencing with the procedure. Using sterile technique, local anesthesia, and sonographic guidance, a 22 gauge needle was advanced through the skin into the right distal iliopsoas bursa adjacent to the femoral lesser trochanter. Initial aspiration was unsuccessful. Next, an 18 gauge needle was used, yielding less than 2 cc of dark serous fluid. A soft tissue biopsy was not performed given the proximity of the femoral vasculature and successful yield of aspirate. Next, approximately 10 cc of 1% lidocaine was injected into the bursa for therapeutic comfort. The needle was then removed and hemostasis was obtained with direct pressure. There were no complications. Multiple images were obtained and archived. FINDINGS: Heterogenous mobile debris was present in the right iliopsoas bursa. Moderate tendinosis of the distal tendon insertion was present without a focal tear. IMPRESSION: Technically successful right iliopsoas bursal aspiration, yielding approximately 2 cc of fluid. The samples were sent for analysis. Given the consistency of the fluid and lack of purulent aspirate, consider the possibility of metallosis/particle disease/ aseptic-lymphocytic tissue reaction. Dictated by: Rashad Heath M.D. on 10/20/2024 at 8:45 Approved by: Rashad Heath M.D. on 10/20/2024 at 8:54
== END ==
PROVIDERS: PCP Family Medicine; Referring Provider Family Medicine; Visit Provider Family Medicine
DX: M25.551 Pain in right hip (principal); G89.18 Other acute postprocedural pain; Z96.641 Presence of right artificial hip joint
CPT/HCPCS: 10005; 27040; 76942; 87070; 87075; 87205

== ENCOUNTER → 2025-03-14 13:23 | Outpatient (CLI) | payer BC, SELFPAY ==
--- NOTE | 2025-03-14 13:33 | EKG_ITS ---
[place] [id number] [place] [id number] Test Date: 2025-03-14 Pat Name: Ac Burr Department: [facility] Room: Gender: Male Accounts Supervisor: KATARINA : 1960 Requested By: Order Number: [id number] Reading MD: Yuan Cruz MD Measurements Intervals [place] Rate: 59 P: 19 AL: 186 QRS: 35 QRSD: 98 T: 41 QT: 426 QTc: 421 Interpretive Statements Sinus bradycardia Septal infarct , age undetermined Electronically Signed On 03-14-2025 17:15:45 PDT by Yuan Cruz MD
[2025-03-14 14:16] LABS: Add Manual Diff / Slide Review NO; Hematocrit 45.9 % (41-53); Hemoglobin 15.7 g/dL (13.5-17.5); Lymphocytes Absolute Auto 3600 /uL (1100-4500); Mean Corpuscular HGB Conc 34.3 % (30-36); Mean Corpuscular Hemoglobin 29.4 PG (26-34); Mean Corpuscular Volume 85.6 fL (80-100); Platelet Count 267 X10^3/uL (150-400)
[2025-03-14 14:25] LABS: Hemoglobin A1C% w Est Avg Glu 5.5 % (4.0-6.0)
[2025-03-14 14:31] LABS: Albumin 4.2 g/dL (3.5-5.0); Blood Urea Nitrogen 23 mg/dL (9-20); Calcium 8.9 mg/dL (8.4-10.2); Carbon Dioxide 28 mmol/L (22-32); Chloride 103 mmol/L (98-107); Estimated Glomerular Filt Rate > 60 mL/min (>60); Glucose 60 mg/dL (70-99); HEMOLYSIS < 15 (0-50); Potassium 3.8 mmol/L (3.4-5.1); Sodium 140 mmol/L (137-145)
[2025-03-14 14:39] LABS: Prealbumin 32.2 mg/dL (17.6-36.0)
[2025-03-14 15:15] LABS: Vitamin D 25 Hydroxy (D3) 45.8 ng/mL (30.0-100.0)
== END ==
PROVIDERS: Orthopaedic Surgery Adult Reconstructive Orthopaedic Surgery; PCP Family Medicine; Referring Provider Family Medicine; Visit Provider Family Medicine
DX: Z01.818 Encounter for other preprocedural examination (principal); M17.12 Unilateral primary osteoarthritis, left knee
CPT/HCPCS: 36415; 80048; 82040; 82306; 83036; 84134; 85025; 93005; 93010

== ENCOUNTER → 2025-06-06 08:40 | Outpatient (CLI) | payer BC, SELFPAY ==
--- NOTE | 2025-06-06 08:41 | DI.MRI.S_ITS ---
PROCEDURE: MR KNEE LT WO CON INDICATIONS: left knee pain TECHNIQUE: Noncontrast sagittal PD fast spin echo and T2 fast spin echo with fat saturation, sagittal 3-D FLASH with fat saturation; coronal T1 spin echo and PD fast spin echo with fat saturation, and axial PD fast spin echo with fat saturation through the knee. COMPARISON: [facility] Vernon Desmet, CR, XR KNEE 4+ VIEWS LEFT, 09/01/2024, 15:25. FINDINGS: Image quality: Excellent. Menisci: There is an oblique tear involving posterior horn of medial meniscus extending to inferior articulating surface. The lateral meniscus is intact. Cruciate ligaments: The anterior cruciate ligament is mildly thickened with intrasubstance T2 hyperintense signal. The posterior cruciate ligament is intact. Medial structures: The medial collateral ligament appears intact. Visualized portions of the pes anserinus tendons appear normal. No abnormal bursal fluid. Lateral structures: The lateral collateral ligament, long and short heads of the biceps femoris tendon appear intact. The popliteus tendon appears intact. Iliotibial band appears normal. Anterior structures: The quadriceps and patellar tendons appear intact. Patellar alignment is normal. Bones and cartilage: No acute fracture or dislocation. Mild edema involving lateral periphery of lateral tibial plateau and anterior aspect of distal femur near the intercondylar notch without discrete fracture line. Mild tricompartmental osteoarthritis and low-grade chondromalacia of more notably in medial femoral tibial compartment. Joint space: There is small knee joint fluid. There is a tiny Sewell's cyst. Normal appearing synovial plicae are incidentally noted. IMPRESSION: 1. Oblique tear involving posterior horn of medial meniscus extending to inferior articulating surface. The lateral meniscus is intact. 2. Sprain/lodged low-grade intrasubstance partial-thickness tear involving ACL. No ACL rupture. The PCL is intact. 3. Mild contusion involving lateral periphery of proximal tibia/lateral tibial plateau. Nonspecific edema also seen within distal femur near intercondylar notch. No fracture or dislocation. Mild tricompartmental osteoarthritis and low-grade chondromalacia more notably in medial femoral tibial compartment. 4. Small joint effusion and a tiny Sewell's cyst. No loose bodies. Dictated by: Chan Selby M.D. on 06/06/2025 at 11:32 Approved by: Chan Selby M.D. on 06/06/2025 at 11:35
== END ==
LOC: MRI 08:40
PROVIDERS: PCP Family Medicine; Referring Provider Family Medicine; Visit Provider Orthopaedic Surgery Adult Reconstructive Orthopaedic Surgery
DX: S83.242A Other tear of medial meniscus, current injury, left knee, initial encounter (principal); S83.512A Sprain of anterior cruciate ligament of left knee, initial encounter; M17.12 Unilateral primary osteoarthritis, left knee; M94.262 Chondromalacia, left knee; M25.462 Effusion, left knee; M25.562 Pain in left knee
CPT/HCPCS: 73721